=== PATIENT | male | born 1985 | race Two or more races ===

== ENCOUNTER 2025-04-09 21:21 | Emergency (ER) | payer SELFPAY ==
[~2025-04-09] VITALS: Ht 165.1 cm; Wt 95.3 kg
[2025-04-09] MEDS ORDERED: ERYTHROMYCIN BASE OPHTH 3.5 GM TUBE ONE (21:58)
[2025-04-09] MEDS: ERYTHROMYCIN BASE OPHTH 3.5 GM TUBE OP ONE (22:07)
[2025-04-09] MEDS ORDERED: TETRAcaine 5 ML BOTTLE ONE (22:24)
[2025-04-09] MEDS: TETRACAINE HCL 0.5% OPHTALMIC 15 ML BOTTLE OP ONE (22:54)
[2025-04-09] MEDS: FLUORESCEIN SODIUM OPHTH 1 EA STRIP OP ONE (22:55)
[2025-04-09] MEDS ORDERED: FLUORESCEIN SODIUM OPHTH 1 EA STRIP ONE (22:55)
[2025-04-09] MEDS ORDERED: CIPR2.5D14 LEFTEYE (23:02)
[2025-04-09 23:10] VITALS: BP 129/80; TEMP 98.2; O2SAT 98
== END 2025-04-09 23:20 | disposition home or self-care (01) ==
LOC: ER 21:25
DX: S05.02XA Injury of conjunctiva and corneal abrasion without foreign body, left eye, initial encounter (principal); H10.212 Acute toxic conjunctivitis, left eye; X58.XXXA Exposure to other specified factors, initial encounter; Y93.89 Activity, other specified; Y92.89 Other specified places as the place of occurrence of the external cause; Y99.8 Other external cause status